=== PATIENT | male | born 1990 | race Caucasian/White ===

== ENCOUNTER 2022-06-09 18:32 | Emergency (ER) | payer OTHER, SELFPAY ==
--- NOTE | 2022-06-09 18:35 | XRR_ITS ---
PROCEDURE INFORMATION: Exam: XR Right Ankle Exam date and time: 06/09/2022 7:13 PM Age: 32 years old Clinical indication: Pain; Ankle; Right; Additional info: Injury TECHNIQUE: Imaging protocol: Radiologic exam of the Right ankle. Views: 3 or more views. COMPARISON: No relevant prior studies available. FINDINGS: Bones/joints: Normal. Soft tissues: Normal. XR/XR ankle RT min 3V* [id number] IMPRESSION: No acute findings.
[2022-06-09 18:45] VITALS: BP 151/82; PULSE 89; RESP 16; TEMP 36.8; O2SAT 99; BMI 27.0
--- NOTE | 2022-06-09 19:13 | ED_ITS ---
HPI - Extremity Problem General: Chief complaint: Extremity Injury, Lower Stated complaint: Rt Ankle Injury Time Seen by Provider: 06/09/22 18:37 Source: patient Mode of arrival: ambulatory Limitations: no limitations History of Present Illness: 32-year-old male who states that he had fell today at work roughly 330 states he fell right on his right ankle and heard a pop to the right ankle he states that some pain to his right lateral ankle since then he has been ambulatory since and denies any other injuries rates his pain a 3 out of 10 currently. Associated symptoms: Deny chest pain, fever(s) or rash Review of Systems Const: Denies: fever(s), chills, body aches or change in appetite Eyes: Denies: blurry vision or eye discomfort ENMT: Denies: throat pain or dental pain Card: Denies: chest pain Resp: Denies: dyspnea GI: Denies: abdominal pain, nausea, vomiting or diarrhea : Denies: dysuria Musc: Reports: extremity pain Skin/Breast: Denies: rash Neuro: Denies: headache(s) Psych: Denies: depression Thierno/Lymph: Denies: easy bruising All/Imm: Denies: urticaria PFSH ED PFSH: Medical History (Updated 06/09/22 @ 19:24 by Danyelle Bhatt MD) No pertinent past medical history Social History (Updated 06/09/22 @ 19:13 by Danyelle Bhatt MD) Substance/Drug Use: never Physical Exam Const: COMMON NORMALS: no acute distress, patient oriented x3 and healthy appearing HENMT: COMMON NORMALS: normocephalic and atraumatic HEAD & SCALP: normocephalic and atraumatic Eye: COMMON NORMALS: Equal, round and reactive pupils present and EOMs intact bilaterally PUPIL: Yes Equal, round and reactive pupils present Neck/C-Spine: COMMON NORMALS: full ROM and supple Chest: COMMONS NORMALS: normal inspection of the chest Resp: COMMON NORMALS: normal respiratory effort Cardio: COMMON NORMALS: regular rate, regular rhythm and No murmurs present (Cardio) RATE: regular rate RHYTHM: regular rhythm GI: INSPECTION: Yes normal to inspection Extremity: COMMON NORMALS: full ROM NARRATIVE EXTREMITY EXAM: Tenderness over right lateral ankle minimal swelling no deformity Neuro: COMMON NORMALS: patient oriented x3, moves all extremities and no focal motor deficits Psych: COMMON NORMALS: mental status grossly normal, Normal thought process present and cooperative THOUGHT PROCESS: Normal thought process present Skin: COMMON NORMALS: no rashes or lesions noted and no wounds GENERAL SKIN EXAM: no rashes or lesions noted Course Vital Signs: Vital signs: Vital Signs Temperature 98.2 F 06/09/22 18:45 Pulse Rate 89 06/09/22 18:45 Respiratory Rate 16 06/09/22 18:45 Blood Pressure 151/82 06/09/22 18:45 Pulse Oximetry 99 06/09/22 18:45 Oxygen Delivery Me thod 06/09/22 18:45 MDM - Extremity (Nontraumatic) Medical Decision Making Patient presents here with a ankle contusion his x-ray here shows no fracture patient is stable for discharge she is to follow-up PCP and return if worsening. Discharge Plan Discharge Patient Disposition: Home Clinical Impression: Contusion of ankle, right Prescriptions: New Naprosyn 500 mg tablet 500 mg PO BID PRN (Reason: pain) Qty: 20 0RF Discharge Orders: Discharge ED (Routine); Ordered 06/09/22 Ordered By: Danyelle Bhatt Discharge Diet: Advance as tolerated Discharge Activity: Resume usual activity Patient Instructions: Contusion in Adults (ED) Coding Level of Care Code ED Flare Stitcher for Alee Fwbeba Exam Comprehensive
[2022-06-09 19:39] VITALS: BP 113/69; PULSE 78; RESP 15; TEMP 36.7; O2SAT 99
== END 2022-06-09 19:43 | disposition home or self-care (01) ==
PROVIDERS: Emergency Provider Emergency Medicine
DX: S90.01XA Contusion of right ankle, initial encounter (principal); W19.XXXA Unspecified fall, initial encounter
CPT/HCPCS: 73610; 99283

== ENCOUNTER → 2023-02-17 10:02 | Outpatient (BNVA) | payer OTHER, SELFPAY | PROVIDERS: Visit Provider Nurse Practitioner Family | DX: M25.571 Pain in right ankle and joints of right foot (principal); M25.471 Effusion, right ankle | CPT/HCPCS: 73610 ==

== ENCOUNTER 2023-03-04 10:03 | Emergency (ER) | payer OTHER, SELFPAY ==
[2023-03-04 10:07] VITALS: RESP 14; TEMP 36.7; BMI 27.7
--- NOTE | 2023-03-04 10:07 | W.ED.ANIMALB ---
HPI - Animal Bite General: Chief Complaint: Animal Bite Stated Complaint: Dog attack Time Seen by Provider: 03/04/23 10:07 History of Present Illness: Mr. 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 He reports being bit by a dog last night and combination of scratches and possibly bites. Subsequently today he was notified of the dog has not been vaccinated and presents to the emergency department for further evaluation. Dog will be observed in pound for 10 days. Patient feels that this is a reliable. Review of Systems General: Reports: 10 or more systems reviewed and unremarkable except in HPI and below PFSH ED PFSH: Medical History No pertinent past medical history Social History Substance/Drug Use: never Physical Exam Const: COMMON NORMALS: alert GENERAL APPEARANCE: cooperative and well developed HENMT: COMMON NORMALS: normocephalic and atraumatic HEAD & SCALP: normocephalic and atraumatic Eye: COMMON NORMALS: conjunctivae normal CONJUNCTIVA: Yes conjunctivae normal SCLERA: sclerae normal Neck/C-Spine: COMMON NORMALS: supple GENERAL: Yes trachea midline Resp: COMMON NORMALS: normal respiratory effort EFFORT & INSPECTION: Yes able to speak in complete sentences Cardio: COMMON NORMALS: regular rate and regular rhythm RATE: regular rate RHYTHM: regular rhythm GI: COMMON NORMALS: Soft to palpation PALPATION: Yes Soft to palpation and No Tenderness to palpation present (GI) Extremity: NARRATIVE EXTREMITY EXAM: Scattered abrasions and superficial lacerations to bilateral hands. No active bleeding. No lesions requiring repair. 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 No clear deep puncture wounds though multiple abrasions on exam. Discussed options regarding rabies prophylaxis. Patient feels comfortable observing dog for 10 days and understands strict return precautions. Plan to treat with antibiotics. The results of ED evaluation were discussed with the patient including prescriptions and/or symptomatic cares (if applicable) including appropriate and responsible use, followup plan, and return precautions. The patient verbalized understanding and felt safe for discharge. Medical Records I reviewed the patient's medical records. Lab Data I reviewed the patient's lab results. Discharge Plan Discharge Patient Disposition: Home Clinical Impression: Dog bite Condition: Stable Prescriptions: New amoxicillin-pot clavulanate 875-125 mg tablet 1 tab PO BID Qty: 20 0RF Discharge Orders: Discharge ED (Routine); Ordered 03/04/23 Ordered By: Kb Hong Discharge Diet: Usual diet Discharge Activity: Resume usual activity Patient Instructions: Animal Bite (ED), Acute Wounds (ED) Activity Restrictions/Additional Instructions: Thank you for visiting the emergency department. You were seen and evaluated for possible bites and scratches by unvaccinated dog. As discussed this will be treated empirically with antibiotics. We discussed options of empiric rabies coverage versus observation of the animal for 10 days. As long as the dog cannot reliably be observed for 10 days and does not exhibit any abnormalities it is considered safe to forego rabies treatment. If dog begins acting abnormal, shows evidence of illness, or cannot be observed please return to the emergency department for rabies prophylaxis. Return to the emergency department for anything else that you are concerned about and feel needs emergency department evaluation. Coding Level of Care Code ED System Software Programmer for Alee Snider
--- NOTE | 2023-03-23 14:57 | DCPLANNER ---
late entry - patient called due to no primary care physician - patient declined at this time.
== END 2023-03-04 10:31 | disposition home or self-care (01) ==
PROVIDERS: Emergency Provider Emergency Medicine
DX: S61.412A Laceration without foreign body of left hand, initial encounter (principal); S61.411A Laceration without foreign body of right hand, initial encounter; S60.512A Abrasion of left hand, initial encounter; S60.511A Abrasion of right hand, initial encounter; W54.0XXA Bitten by dog, initial encounter; Y99.0 Civilian activity done for income or pay; Z20.3 Contact with and (suspected) exposure to rabies
CPT/HCPCS: 99283

== ENCOUNTER 2024-02-23 16:25 | Emergency (ER) | payer OTHER, SELFPAY ==
[2024-02-23 16:28] VITALS: BP 147/77; PULSE 92; RESP 20; O2SAT 99
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
[2024-02-23 16:47] LABS: Basophils % 0.2 %; Eosinophils % 0.5 %; Hematocrit 42.7 % (37-53); Lymphocytes # 1.9 10^3/uL (0.8-4.8); Lymphocytes % 31.5 %; Mean Corpuscular HGB Conc 35.6 g/dL (30-55); Mean Corpuscular Volume 87.1 fl (82-101); Mean Platelet Volume 9.5 fL (7.4-10.4); Monocytes # 0.4 10^3/uL (0.2-0.9); Monocytes % 7.1 %; Neutrophils % 60.5 %; Nucleated Red Blood Cells % 0 %; Platelet Count 239 10^3/cmm (157-399); Red Cell Distribution Width 12.3 % (12.1-15.1); White Blood Count 5.94 10^3/uL (3.29-11.43)
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
[2024-02-23 17:02] LABS: Alanine Aminotransferase 34 U/L (0-41); Albumin Level 4.4 g/dL (3.5-5.2); Alkaline Phosphatase 100 U/L (40-130); Blood Urea Nitrogen 7 mg/dL (6-20); Calcium 9.2 mg/dL (8.5-10.5); Carbon Dioxide 20 mmol/L (22-29); Chloride 104 mmol/L (98-107); Glomerular Filtration Rate 86.6 mL/min (90-130); Glucose 103 mg/dL (65-115); Osmolality Calculated 284 mOsm/kg (285-295); Sodium 138 mmol/L (136-145); Total Bilirubin 0.7 mg/dL (0.15-1.2); Total Protein 7.4 g/dL (6.6-8.7)
[2024-02-23 17:05] LABS: Anion Gap 17.6 (5-19); Aspartate Amino Transferase 25 U/L (0-40); Potassium 3.6 mmol/L (3.5-5.1)
[2024-02-23 17:12] VITALS: TEMP 36.9
[2024-02-23] MEDS: iohexol 350 mg/mL 500 mL Btl (per mL) IV (17:21)
[2024-02-23 18:30] VITALS: PULSE 72; O2SAT 99
[2024-02-23 18:37] VITALS: PULSE 72; O2SAT 99
== END 2024-02-23 19:01 | disposition home or self-care (01) ==
PROVIDERS: Emergency Provider Family Medicine
DX: S30.811A Abrasion of abdominal wall, initial encounter (principal); M54.2 Cervicalgia; S50.311A Abrasion of right elbow, initial encounter; S80.211A Abrasion, right knee, initial encounter; V28.49XA Other motorcycle driver injured in noncollision transport accident in traffic accident, initial encounter
CPT/HCPCS: 73080; 73562; 73610; 74177; 80053; 85025; 99285; Q9967

== ENCOUNTER → 2024-10-15 07:58 | Outpatient (BNVA) | payer OTHER, SELFPAY | PROVIDERS: Visit Provider Orthopaedic Surgery | DX: S52.124A Nondisplaced fracture of head of right radius, initial encounter for closed fracture (principal); X58.XXXA Exposure to other specified factors, initial encounter | CPT/HCPCS: 73080 ==

== ENCOUNTER → 2024-11-07 08:23 | Outpatient (BNVA) | payer OTHER, SELFPAY | PROVIDERS: Visit Provider Orthopaedic Surgery | DX: S52.124D Nondisplaced fracture of head of right radius, subsequent encounter for closed fracture with routine healing (principal); X58.XXXD Exposure to other specified factors, subsequent encounter | CPT/HCPCS: 73080 ==